=== PATIENT | male | born 1990 | race Caucasian/White ===

== ENCOUNTER 2022-11-15 12:54 | Emergency (ER) | payer OTHER ==
[~2022-11-15] VITALS: Ht 188 cm; Wt 66.2 kg
[2022-11-15 13:10] VITALS: RESP 16
[2022-11-15 13:49] VITALS: BP 132/64; PULSE 66; TEMP 97.9; O2SAT 97
[2022-11-15] MEDS ORDERED: NAPR-746 PO (14:27)
[2022-11-15] MEDS ORDERED: CEPH500C PO (14:27)
== END 2022-11-15 14:33 | disposition home or self-care (01) ==
LOC: ER 12:54
DX: S53.401A Unspecified sprain of right elbow, initial encounter (principal); S60.221A Contusion of right hand, initial encounter; W22.8XXA Striking against or struck by other objects, initial encounter; Y93.89 Activity, other specified; Y92.89 Other specified places as the place of occurrence of the external cause; Y99.8 Other external cause status
CPT/HCPCS: 73080; 73130

== ENCOUNTER 2024-06-09 13:44 | Emergency (ER) | payer OTHER ==
[~2024-06-09] VITALS: Ht 188 cm; Wt 71.0 kg
[~2024-06-09 13:44] MED LIST: CEPH500C PO; NAPR-746 PO
[2024-06-09 15:06] VITALS: BP 130/73; PULSE 73; RESP 17; TEMP 97.5; O2SAT 97
--- NOTE | 2024-06-09 16:05 | DVH ---
Exam: US LEFT UPPER EXT Clinical History: Mass Comparison: None Technique: Targeted sonographic evaluation of the soft tissues of the was obtained utilizing grayscale and col or Doppler imaging. Findings/Impression: In the area of interest there is an anechoic structure in the left thumb measuring 1.1 x 0.6 x 0.8 cm .
[2024-06-09] MEDS ORDERED: DOXY-286 PO (16:24)
--- NOTE | 2024-06-09 16:24 | ED.PDOC ---
Musculoskeletal HPI Comments This is a pleasant 33-year-old gentleman with no pertinent MHx that presents with a chief complaint of localized swelling to the left distal thumb. Onset was approximately eight months ago. Complains of TTP but denies any erythema fevers chills nausea vomiting diarrhea or denies taking medications/antibiotics. Has not been seen by his PCP for this. Chief Complaint: Upper Extremity Time Seen by MD: 14:43 Primary Care Provider: NONE Reviewed Notes: Nurses Notes, Medications, Allergies Allergies: Coded Allergies: NO KNOWN ALLERGIES (Unverified , 11/15/22) Home Meds Active Scripts Doxycycline Hyclate (DOXYCYCLINE HYCLATE) 100 Mg Tab, 1 TAB PO BID for 7 Days, #14 TAB 0 Refills Prov:SAMARA BARKSDALE NP 06/09/24 Naproxen (Naproxen) 500 Mg Tab, 500 MG PO BID, #30 TAB Prov:RADHA BORJA 11/15/22 Cephalexin Monohydrate (Cephalexin) 500 Mg Cap, 1 CAP PO TID, #30 CAP Prov:RADHA BORJA 11/15/22 Information Source: Patient Mode of Arrival: Ambulatory Past Medical History PAST MEDICAL HISTORY: Denies Surgical History: Denies all surgeries Family History Family History: Reviewed,noncontributory to illness Social History Smoker: Non-Smoker Alcohol: Denies ETOH Use Drugs: Denies Drug Use Lives In: Home All Other Systems: Reviewed and Negative (per hpi) Physical Exam General Appearance: No Apparent Distress, Normal HEENT: Normal ENT Inspection, Pharynx Normal, TMs Normal Neck: Full Range of Motion, Non-Tender, Normal, Normal Inspection Respiratory: Chest Non-Tender, Lungs Clear, No Accessory Muscle Use, No Respiratory Distress, Normal Breath Sounds Cardiovascular: No Murmur, No Gallop, Regular Rate/Rhythm Breast Exam: Deferred Gastrointestinal: No Organomegaly, Non Tender, No Pulsatile Mass, Normal Bowel Sounds, Soft Genitalia: Deferred Pelvic: Deferred Rectal: Deferred Extremities: No calf tenderness, Normal range of motion, Non-tender, No pedal edema Musculoskeletal : Location: Left Extremity Location: Thumb (1x1 cm papule. No erythemata. No fluctuance. ) Apperance: Normal Neurologic: Alert, No Motor Deficits, Normal Affect, Normal Mood, No Sensory Deficits Cerebellar Function: Normal Reflexes: Normal Skin: Dry, Normal Color, Warm Lymphatic: No Adenopathy Was a procedure done? Was a procedure done?: No Differential Diagnosis EXT Differential Diagnosis: Other X-Ray, Labs, Meds, VS Vital Signs Date Time Temp Pulse Resp B/P (MAP) Pulse Ox O2 Delivery O2 Flow Rate FiO2 06/09/24 15:06 73 17 97 Room Air 06/09/24 15:06 97.5 73 17 130/73 (92) 97 97.5 06/09/24 13:55 97.5 73 17 130/73 (92) 97 97.5 PATIENT: RIP NICHOLSACCT: [id number]: [id number] : 1990 LOC: ER ROOM / BED: / AGE / SEX: 33 / M ADM STATUS: REG ER SERVICE [id number] ORDERING PHYSICIAN: SAMARA BARKSDALE NP PROCEDURE(s): LUEXT - LEFT UPPER EXT REASON: ORDER NUMBER(s): [id number], ACCESSION NUMBER(s): [id number] Exam: US LEFT UPPER EXT Clinical History: Mass Comparison: None Technique: Targeted sonographic evaluation of the soft tissues of the was obtained utilizing grayscale and color Doppler imaging. Findings/Impression: In the area of interest there is an anechoic structure in the left thumb measuring 1.1 x 0.6 x 0.8 cm. ATED BY: MAGGIE KAHN MD DICTATED DATE/TIME: 06/09/24 1603 SIGNED BY: MAGGIE KAHN MD SIGNED DATE/TIME: 06/09/24 1603 CC: X-Ray, Labs, Meds, VS Comment Cyst versus abscess. Ultrasound ordered and findings show an anechoic structure in the left thumb measuring 1.1 x 0.6 x 0.8 cm. Based on show decision-making patient agreed to empiric treatment and advised to follow up with PCP return precautions were discussed Time of 1ST Reevaluation: 16:00 Reevaluation 1ST: Improved Patient Education/Counseling: Diagnosis, Treatment Family Education/Counseling: Diagnosis, Treatment Departure 1 Departure Time of Disposition: 16:22 Impression: Primary Impression: Pain of left thumb Disposition: 01 HOME / SELF CARE / HOMELESS Condition: Stable e-Prescriptions Doxycycline Hyclate (DOXYCYCLINE HYCLATE) 100 Mg Tab 1 TAB PO BID for 7 Days, #14 TAB 0 Refills Prov: SAMARA BARKSDALE NP 06/09/24 Critical Care Note Critical Care Time?: No Stability Stability form required: No Heart Score Heart Score: Heart Score Response (Comments) Value History N/A 0 EKG N/A 0 Age N/A 0 Risk Factors N/A 0 Troponin N/A 0 Total 0 SAMARA BARKSDALE NP Jun 09, 2024 16:24
== END 2024-06-09 17:01 | disposition home or self-care (01) ==
LOC: ER 13:44
DX: M79.645 Pain in left finger(s) (principal); M79.89 Other specified soft tissue disorders
CPT/HCPCS: 76881